=== PATIENT | female | born 1995 | race Caucasian/White ===

== ENCOUNTER 2021-05-10 00:05 | Emergency (ER) | payer OTHER ==
[~2021-05-10] VITALS: Ht 171.4 cm; Wt 88.0 kg
[2021-05-10 00:13] VITALS: BP 110/73
--- NOTE | 2021-05-10 00:14 | NUR ---
25 YO/F BIB SELF W C/O L ANKLE PAIN 6/10 SHARP NON-RADIATING CONSTANT [id number] S/P TWISTING ANKLE OUTWARDS AND FALLING. PATIENT DENIES HITTING HEAD. NO SWELLING NOTED TO L ANKLE/FOOT, +2 PEDAL PULSES W CAP REFIL <3 SEC, +ROM. PATIENT DOES NOT WANT PAIN MEDICATION AT THIS TIME. PATIENT SITTING IN BED LOCKED IN LOWEST POSITION. BREATHING EVEN AND UNLABORED. NAD NOTED, WILL CONTINUE TO MONITOR. PMH:DENIES NKA
--- NOTE | 2021-05-10 00:18 | NUR ---
Dr. Ramos examining patient.
--- NOTE | 2021-05-10 00:20 | NUR ---
Jamie bauer in [place] - 05/10/21 at 0020 by RICARDO - ADMIT CALLING PT INSURANCE FOR AUTHORIZATION TO ADMIT - PER ADMPATTI ROSARIO , PROCEED TO ADMIT TO
[2021-05-10] MEDS ORDERED: NAPR-54 PO (01:00)
[2021-05-10 01:02] VITALS: BP 119/81
--- NOTE | 2021-05-10 01:02 | NUR ---
Patient discharged with v/s stable. Written and verbal after care instructions given and explained BY DR. SINGLETON Patient alert, oriented and verbalized understanding of instructions. Ambulatory with steady gait. All questions addressed prior to discharge. ID band removed. Patient advised to follow up with PMD. Rx of NAPROSYN given. Patient educated on indication of medication including possible reaction and side effects. Opportunity to ask questions provided and answered.
== END 2021-05-10 01:02 | disposition home or self-care (01) ==
LOC: MED 00:05
DX: S93.602A Unspecified sprain of left foot, initial encounter (principal); X50.0XXA Overexertion from strenuous movement or load, initial encounter; Y93.89 Activity, other specified; Y92.89 Other specified places as the place of occurrence of the external cause; Y99.8 Other external cause status
CPT/HCPCS: 73630; 99283; Q0092